=== PATIENT | male | born 1965 | race Caucasian/White ===

== ENCOUNTER 2019-10-11 20:22 | Observation (INO) | payer BC ==
[2019-10-11] MEDS ORDERED: Catapres 0.1 MG PO ONE (20:39)
[2019-10-11] MEDS ORDERED: Sodium Chloride 0.9% 1000 ML 1,000 ML IV SCH (20:45)
[2019-10-11] MEDS ORDERED: Hydromorphone 1 mg/ml Ampule IV ONE (20:55)
[2019-10-11] MEDS ORDERED: Catapres 0.1 MG ONE (20:55)
[2019-10-11] MEDS ORDERED: NORVASC 5 MG PO ONE (20:55)
[2019-10-11 20:56] LABS: Absolute Neutrophil Ct (ANC) 3.78 (1.4-6.9); BASOPHIL % 1.2 % (0.0-0.4); Basophil (Absolute #) 0.08 (0-0.4); Eosinophil (Absolute #) 0.19 (0-0.5); Hematocrit 46.8 % (42-50); Hemoglobin 16.6 gm/dl (12.5-18.0); Lymphocyte (Absolute #) 1.73 (1.0-4.6); Lymphocytes % 26.9 % (24.0-44.0); Mean Cell Volume 89.7 fl (78-100); Mean Corpuscular Hemoglobin 31.8 pg (26-32); Mean Corpuscular Hgb Concent. 35.5 g/dl (32-36); Mean Platelet Volume 10.4 fl (7.5-11.0); Monocyte (Absolute #) 0.64 (0.0-1.3); Neutrophil % 58.9 % (36.0-66.0); Platelet Count 300 K/mm3 (150-450); Red Blood Count 5.22 M/mm3 (4.1-5.6); Red Cell Distribution Width 13.4 % (11.5-14.0); White Blood Count 6.4 K/mm3 (4.0-10.5)
[2019-10-11] MEDS ORDERED: NORVASC 5 MG ONE (21:00)
[2019-10-11] MEDS ORDERED: Hydromorphone 1 mg/ml Ampule ONE (21:00)
[2019-10-11 21:07] LABS: INR 1.04 (0.8-3.0); PROTIME 11.8 SECONDS (8.83-12.87)
[2019-10-11 21:10] LABS: PTT 45.6 SECONDS (24.1-36.1)
[2019-10-11 21:12] LABS: ALBUMIN 4.5 g/dL (3.5-5.0); ALKALINE PHOSPHATASE 65 U/L (38-126); AMYLASE 64 U/L (30-110); ANION GAP 12.1 MEQ/L (5-15); BLOOD UREA NITROGEN 16 mg/dL (9-20); CHLORIDE 106 mmol/L (98-107); Carbon Dioxide 22 mmol/L (22-30); Creatinine 1 0.91 mg/dL (0.66-1.25); EST GLOMERULAR FILTRATION RATE > 60.0 ML/MIN; Glucose 125 mg/dL (74-106); LIPASE 87 U/L (23-300); Potassium 4.4 mmol/L (3.5-5.1); SGOT/AST 30 U/L (17-59); SGPT/ALT 25 U/L (0-50); SODIUM 136 mmol/L (137-145); Total Protein 7.9 g/dL (6.3-8.2)
[2019-10-11 21:30] LABS: Appearance CLEAR (CLEAR); Bilirubin NEGATIVE (NEGATIVE); Blood NEGATIVE Ery/ul (0-5); Glucose NEGATIVE (NEGATIVE); Ketones NEGATIVE (NEGATIVE); Leukocyte Esterase NEGATIVE (NEGATIVE); Mucus SLIGHT /HPF (NEGATIVE); Nitrite NEGATIVE (NEGATIVE); Protein,Urine Dip NEGATIVE (Negative); Specific Gravity 1.015 (1.005-1.025); Urobilinogen NEGATIVE mg/dL (0-1)
[2019-10-11 21:34] LABS: Bacteria NONE SEEN /HPF (NEGATIVE)
[2019-10-11] MEDS ORDERED: LOPRESSOR 5 MG/5 ML INJECTION IV ONE ×2 (21:42→21:45)
[2019-10-11] MEDS ORDERED: Zofran 4 MG/2 ML VIAL IV ONE (21:43)
[2019-10-11] MEDS ORDERED: Zofran 4 MG/2 ML VIAL ONE (21:45)
--- NOTE | 2019-10-11 22:22 | ERPHSYRPT ---
- History of Present Illness Time Seen by Provider: 10/11/19 20:40 Source: patient Exam Limitations: no limitations Patient Subjective Stated Complaint: pt states he had stopped taking his bp medicine and has been having headaches at home and chest pressure today. Triage Nursing Assessment: pt alert and oriented, answers questions approp. pt ambulatory with steady gait noted. respirations nonlabored with lungs cta. skin warm an dry. heart rate 80 on monitor, sinus rhythm. Physician History: Is a 54-year-old male who has been off of all blood pressure medicines for some months. He presents with a complaint of a severe headache and his blood pressure being elevated. He does not recall the medicines that have been used to try to control his blood pressure in the past. However he says that what ever has been tried has left him with unacceptable side effects in the past. He has had difficulties for several months but developed chest pressure today which brought him to the ER. He also complains of severe global headache Timing/Duration: today Activities at Onset: none Quality: fullness, pressure Location: substernal Chest Pain Radiation: no radiation Severity of Pain-Max: moderate Severity of Pain-Current: moderate Modifying Factors: Improves With: nothing Nitro Today/Relief: no nitro taken today Aspirin Treatment Today: no aspirin today Associated Symptoms: nausea, diaphoresis, chest pain Prior Chest Pain/Cardiac Workup: no prior chest pain Allergies/Adverse Reactions: No Known Drug Allergies Allergy (Verified 10/11/19 20:47) Home Medications: No Reportable Medications [No Reported Medications] 10/11/19 [History] Hx Tetanus, Diphtheria Vaccination/Date Given: Yes Hx Influenza Vaccination/Date Given: No Hx Pneumococcal Vaccination/Date Given: No Immunizations Up to Date: Yes Travel Risk - International Travel Have you traveled outside of the country in past 3 weeks: No - Coronavirus Screening Are you exhibiting any of the following symptoms?: No Close contact with a COVID-19 positive Pt in past 14-21 Days: No - Review of Systems Constitutional: No Fever, No Chills Eyes: No Symptoms Ears, Nose, & Throat: No Symptoms Respiratory: No Cough, No Dyspnea Cardiac: Chest Pain, No Edema, No Syncope Abdominal/Gastrointestinal: No Abdominal Pain, No Nausea, No Vomiting, No Diarrhea Genitourinary Symptoms: No Dysuria Musculoskeletal: No Back Pain, No Neck Pain Skin: No Rash Neurological: No Dizziness, No Focal Weakness, No Sensory Changes Psychological: No Symptoms Endocrine: No Symptoms All Other Systems: Reviewed and Negative - Past Medical History Pertinent Past Medical History: Yes Cardiac History: Hypertension - Past Surgical History Past Surgical History: Yes Gastrointestinal: Appendectomy Other Surgical History: back surgery 1999 - Social History Smoking Status: Light tobacco smoker Exposure to second hand smoke: No Drug Use: none Patient Lives Alone: No - Nursing Vital Signs Nursing Vital Signs: Initial Vital Signs Temperature 98.5 F 10/11/19 20:29 Pulse Rate 85 10/11/19 20:29 Respiratory Rate 16 10/11/19 20:29 Blood Pressure 206/112 10/11/19 20:29 O2 Sat by Pulse Oximetry 98 10/11/19 20:29 Pain Scale Pain Intensity 6 - Physical Exam General Appearance: no apparent distress, alert Eye Exam: PERRL/EOMI, eyes nml inspection Ears, Nose, Throat Exam: normal ENT inspection, moist mucous membranes Neck Exam: normal inspection, non-tender, supple Respiratory Exam: normal breath sounds, lungs clear, No respiratory distress Cardiovascular Exam: regular rate/rhythm, normal heart sounds, No edema Gastrointestinal/Abdomen Exam: soft, No tenderness, No mass Back Exam: normal inspection, No CVA tenderness, No vertebral tenderness Extremity Exam: normal inspection, normal range of motion Neurologic Exam: alert, oriented x 3, cooperative, normal mood/affect, nml cerebellar function, sensation nml, No motor deficits Skin Exam: normal color, warm, dry Lymphatic Exam: No adenopathy SpO2 Interpretation: normal SpO2: 97 O2 Delivery: Room Air - Course Nursing assessment & vital signs reviewed: Yes EKG Interpreted by Me: RATE (87), Sinus Rhythm, NORMAL AXIS, NORMAL INTERVALS, NORMAL QRS, Non-specific ST Changes, Other (Old inferior CO) - Radiology Exams Chest X-ray Interpretation: Interpreted by me (Widened mediastinum) - CT Exams Chest CT Interpretation: Tele-radiologist Report (CT scan of the chest with contrast shows no pulmonary emboli no thoracic aortic aneurysm or dissection and old granulomatous disease) Ordered Tests: Active Orders 24 hr Category Date Time Status EKG-ER Only STAT Care 10/11/19 20:39 Active IV Insertion STAT Care 10/11/19 20:39 Active CHEST 1 VIEW (PORTABLE) Stat Exams 10/11/19 20:40 Taken CHEST WITH CONTRAST [CT] Stat Exams 10/11/19 22:53 Taken HEAD WITHOUT CONTRAST [CT] Stat Exams 10/11/19 20:56 Taken AMYLASE Stat Lab 10/11/19 20:50 Completed CBC W DIFF Stat Lab 10/11/19 20:50 Completed CMP Stat Lab 10/11/19 20:50 Completed LIPASE Stat Lab 10/11/19 20:50 Completed Lactic Acid Stat Lab 10/11/19 21:05 Completed PROTIME WITH INR Stat Lab 10/11/19 20:50 Completed PTT Stat Lab 10/11/19 20:50 Completed TROPONIN Q3H Lab 10/11/19 20:50 Completed TROPONIN Q3H Lab 10/11/19 23:45 Completed TROPONIN Q3H Lab 10/12/19 00:10 Received TROPONIN Q3H Lab 10/12/19 05:45 Ordered TROPONIN Q3H Lab 10/12/19 08:45 Ordered Medication Summary Generic Name Dose Route Start Last Admin Trade Name Freq PRN Reason Stop Dose Admin Sodium Chloride 1,000 mls @ 50 mls/hr 10/11/19 20:45 10/11/19 21:02 Sodium Chloride 0.9% 1000 Ml IV 11/10/19 20:44 50 mls/hr .Q20H SARA Administration Discontinued Medications Generic Name Dose Route Start Last Admin Trade Name Freq PRN Reason Stop Dose Admin Amlodipine Besylate 10 mg 10/11/19 20:55 10/11/19 21:02 Norvasc 5 Mg PO 10/11/19 20:56 10 mg STAT ONE Administration Amlodipine Besylate Confirm 10/11/19 21:00 Norvasc 5 Mg Administered 10/11/19 21:01 Dose 10 mg .ROUTE .STK-MED ONE Clonidine 0.1 mg 10/11/19 20:39 10/11/19 21:02 Catapres 0.1 Mg PO 10/11/19 20:40 0.1 mg STAT ONE Administration Clonidine Confirm 10/11/19 20:55 Catapres 0.1 Mg Administered 10/11/19 20:56 Dose 0.1 mg .ROUTE .STK-MED ONE Hydromorphone HCl 1 mg 10/11/19 20:55 10/11/19 21:03 Hydromorphone 1 Mg/Ml Ampule IV 10/11/19 20:56 1 mg STAT ONE Administration Hydromorphone HCl Confirm 10/11/19 21:00 Hydromorphone 1 Mg/Ml Ampule Administered 10/11/19 21:01 Dose 1 mg .ROUTE .STK-MED ONE Metoprolol Tartrate 5 mg 10/11/19 21:42 10/11/19 21:49 Lopressor 5 Mg/5 Ml Injection IV 10/11/19 21:43 5 mg STAT ONE Administration Metoprolol Tartrate Confirm 10/11/19 21:45 Lopressor 5 Mg/5 Ml Injection Administered 10/11/19 21:46 Dose 5 mg IV .STK-MED ONE Ondansetron HCl 4 mg 10/11/19 21:43 10/11/19 21:48 Zofran 4 Mg/2 Ml Vial IV 10/11/19 21:44 4 mg STAT ONE Administration Ondansetron HCl Confirm 10/11/19 21:45 Zofran 4 Mg/2 Ml Vial Administered 10/11/19 21:46 Dose 4 mg .ROUTE .STK-MED ONE Lab/Rad Data: Laboratory Result Diagrams 10/11/19 20:50 10/11/19 20:50 Laboratory Results 10/12/19 10/11/19 10/11/19 Range/Units 00:10 Unknown 23:50 WBC (4.0-10.5) K/mm3 RBC (4.1-5.6) M/mm3 Hgb (12.5-18.0) gm/dl Hct (42-50) % MCV (78-100) fl MCH (26-32) pg MCHC (32-36) g/dl RDW (11.5-14.0) % Plt Count (150-450) K/mm3 MPV (7.5-11.0) fl Gran % (36.0-66.0) % Eos # (Auto) (0-0.5) Absolute Lymphs (auto) (1.0-4.6) Absolute Monos (auto) (0.0-1.3) Lymphocytes % (24.0-44.0) % Monocytes % (0.0-12.0) % Eosinophils % (0.00-5.0) % Basophils % (0.0-0.4) % Absolute Granulocytes (1.4-6.9) Basophils # (0-0.4) PT (8.83-12.87) SECONDS INR (0.8-3.0) APTT (24.1-36.1) SECONDS Sodium (137-145) mmol/L Potassium (3.5-5.1) mmol/L Chloride (98-107) mmol/L Carbon Dioxide (22-30) mmol/L Anion Gap (5-15) MEQ/L BUN (9-20) mg/dL Creatinine (0.66-1.25) mg/dL Estimated GFR ML/MIN Glucose (74-106) mg/dL Lactic Acid (0.4-2.0) Calcium (8.4-10.2) mg/dL Total Bilirubin (0.2-1.3) mg/dL AST (17-59) U/L ALT (0-50) U/L Alkaline Phosphatase (38-126) U/L Troponin I < 0.012 (0.000-0.034) ng/mL Serum Total Protein (6.3-8.2) g/dL Albumin (3.5-5.0) g/dL Amylase (30-110) U/L Lipase (23-300) U/L Urine Color YELLOW (YELLOW) Urine Appearance CLEAR (CLEAR) Urine pH 7.0 (5-6) Ur Specific [place] 1.015 (1.005-1.025) Urine Protein NEGATIVE (Negative) Urine Ketones NEGATIVE (NEGATIVE) Urine Blood NEGATIVE (0-5) Quentin/ul Urine Nitrite NEGATIVE (NEGATIVE) Urine Bilirubin NEGATIVE (NEGATIVE) Urine Urobilinogen NEGATIVE (0-1) mg/dL Ur Leukocyte Esterase NEGATIVE (NEGATIVE) Urine WBC (Auto) NONE (0-5) /HPF Urine RBC (Auto) NONE (0-2) /HPF U Epithel Cells (Auto) NONE (FEW) /HPF Urine Bacteria (Auto) NONE SEEN (NEGATIVE) /HPF Urine Mucus (Auto) SLIGHT (NEGATIVE) /HPF Urine Culture Reflexed NO (NO) Urine Glucose NEGATIVE (NEGATIVE) mg/dL SARS-CoV-2 (PCR) NEGATIVE (NEGATIVE) 10/11/19 10/11/19 10/11/19 Range/Units 21:05 20:50 20:50 WBC (4.0-10.5) K/mm3 RBC (4.1-5.6) M/mm3 Hgb (12.5-18.0) gm/dl Hct (42-50) % MCV (78-100) fl MCH (26-32) pg MCHC (32-36) g/dl RDW (11.5-14.0) % Plt Count (150-450) K/mm3 MPV (7.5-11.0) fl Gran % (36.0-66.0) % Eos # (Auto) (0-0.5) Absolute Lymphs (auto) (1.0-4.6) Absolute Monos (auto) (0.0-1.3) Lymphocytes % (24.0-44.0) % Monocytes % (0.0-12.0) % Eosinophils % (0.00-5.0) % Basophils % (0.0-0.4) % Absolute Granulocytes (1.4-6.9) Basophils # (0-0.4) PT 11.8 (8.83-12.87) SECONDS INR 1.04 (0.8-3.0) APTT 45.6 H (24.1-36.1) SECONDS Sodium (137-145) mmol/L Potassium (3.5-5.1) mmol/L Chloride (98-107) mmol/L Carbon Dioxide (22-30) mmol/L Anion Gap (5-15) MEQ/L BUN (9-20) mg/dL Creatinine (0.66-1.25) mg/dL Estimated GFR ML/MIN Glucose (74-106) mg/dL Lactic Acid 1.4 (0.4-2.0) Calcium (8.4-10.2) mg/dL Total Bilirubin (0.2-1.3) mg/dL AST (17-59) U/L ALT (0-50) U/L Alkaline Phosphatase (38-126) U/L Troponin I < 0.012 (0.000-0.034) ng/mL Serum Total Protein (6.3-8.2) g/dL Albumin (3.5-5.0) g/dL Amylase (30-110) U/L Lipase (23-300) U/L Urine Color (YELLOW) Urine Appearance (CLEAR) Urine pH (5-6) Ur Specific [place] (1.005-1.025) Urine Protein (Negative) Urine Ketones (NEGATIVE) Urine Blood (0-5) Quentin/ul Urine Nitrite (NEGATIVE) Urine Bilirubin (NEGATIVE) Urine Urobilinogen (0-1) mg/dL Ur Leukocyte Esterase (NEGATIVE) Urine WBC (Auto) (0-5) /HPF Urine RBC (Auto) (0-2) /HPF U Epithel Cells (Auto) (FEW) /HPF Urine Bacteria (Auto) (NEGATIVE) /HPF Urine Mucus (Auto) (NEGATIVE) /HPF Urine Culture Reflexed (NO) Urine Glucose (NEGATIVE) mg/dL SARS-CoV-2 (PCR) (NEGATIVE) 10/11/19 10/11/19 Range/Units 20:50 20:50 WBC 6.4 (4.0-10.5) K/mm3 RBC 5.22 (4.1-5.6) M/mm3 Hgb 16.6 (12.5-18.0) gm/dl Hct 46.8 (42-50) % MCV 89.7 (78-100) fl MCH 31.8 (26-32) pg MCHC 35.5 (32-36) g/dl RDW 13.4 (11.5-14.0) % Plt Count 300 (150-450) K/mm3 MPV 10.4 (7.5-11.0) fl Gran % 58.9 (36.0-66.0) % Eos # (Auto) 0.19 (0-0.5) Absolute Lymphs (auto) 1.73 (1.0-4.6) Absolute Monos (auto) 0.64 (0.0-1.3) Lymphocytes % 26.9 (24.0-44.0) % Monocytes % 10.0 (0.0-12.0) % Eosinophils % 3.0 (0.00-5.0) % Basophils % 1.2 (0.0-0.4) % Absolute Granulocytes 3.78 (1.4-6.9) Basophils # 0.08 (0-0.4) PT (8.83-12.87) SECONDS INR (0.8-3.0) APTT (24.1-36.1) SECONDS Sodium 136 L (137-145) mmol/L Potassium 4.4 (3.5-5.1) mmol/L Chloride 106 (98-107) mmol/L Carbon Dioxide 22 (22-30) mmol/L Anion Gap 12.1 (5-15) MEQ/L BUN 16 (9-20) mg/dL Creatinine 0.91 (0.66-1.25) mg/dL Estimated GFR > 60.0 ML/MIN Glucose 125 H (74-106) mg/dL Lactic Acid (0.4-2.0) Calcium 9.0 (8.4-10.2) mg/dL Total Bilirubin 0.80 (0.2-1.3) mg/dL AST 30 (17-59) U/L ALT 25 (0-50) U/L Alkaline Phosphatase 65 (38-126) U/L Troponin I (0.000-0.034) ng/mL Serum Total Protein 7.9 (6.3-8.2) g/dL Albumin 4.5 (3.5-5.0) g/dL Amylase 64 (30-110) U/L Lipase 87 (23-300) U/L Urine Color (YELLOW) Urine Appearance (CLEAR) Urine pH (5-6) Ur Specific [place] (1.005-1.025) Urine Protein (Negative) Urine Ketones (NEGATIVE) Urine Blood (0-5) Quentin/ul Urine Nitrite (NEGATIVE) Urine Bilirubin (NEGATIVE) Urine Urobilinogen (0-1) mg/dL Ur Leukocyte Esterase (NEGATIVE) Urine WBC (Auto) (0-5) /HPF Urine RBC (Auto) (0-2) /HPF U Epithel Cells (Auto) (FEW) /HPF Urine Bacteria (Auto) (NEGATIVE) /HPF Urine Mucus (Auto) (NEGATIVE) /HPF Urine Culture Reflexed (NO) Urine Glucose (NEGATIVE) mg/dL SARS-CoV-2 (PCR) (NEGATIVE) - Progress Progress: improved Air Movement: good Progress Note: 10/12/19 01:15 Did discuss the case with Dr. Glenn miller and felt that an observation admission was warranted by his continued chest pain and troponin series. We will also watch and monitor his blood pressure. And treat as necessary Blood Culture(s) Obtained: No Antibiotics given: No Discussed with : Judd Will see patient in: hospital (observation) - Departure Departure Disposition: Observation Clinical Impression: Hypertensive emergency without congestive heart failure, Chest pain Condition: Fair Critical Care Time: Yes Critical Care Time(excluding separately billable procedures): Critical 30-74 mins Referrals: BRANDO RUSHING, GROUP ROOMS COORDINATOR [Primary Care Provider] -
[2019-10-12] MEDS ORDERED: TYLENOL 325 MG PO PRN (01:18)
[2019-10-12] MEDS ORDERED: MORPHINE SULFATE 2 MG INJ IV PRN (01:18)
[2019-10-12] MEDS ORDERED: Zofran 4 MG/2 ML VIAL IV PRN (01:18)
[2019-10-12 03:33] LABS: Absolute Neutrophil Ct (ANC) 3.24 (1.4-6.9); BASOPHIL % 0.6 % (0.0-0.4); Basophil (Absolute #) 0.04 (0-0.4); Eosinophil (Absolute #) 0.25 (0-0.5); Hematocrit 42.9 % (42-50); Hemoglobin 14.9 gm/dl (12.5-18.0); Lymphocyte (Absolute #) 2.21 (1.0-4.6); Mean Cell Volume 90.1 fl (78-100); Mean Corpuscular Hemoglobin 31.3 pg (26-32); Mean Corpuscular Hgb Concent. 34.7 g/dl (32-36); Mean Platelet Volume 10.2 fl (7.5-11.0); Monocyte (Absolute #) 0.57 (0.0-1.3); Neutrophil % 51.4 % (36.0-66.0); Platelet Count 259 K/mm3 (150-450); Red Blood Count 4.76 M/mm3 (4.1-5.6); Red Cell Distribution Width 13.4 % (11.5-14.0); White Blood Count 6.3 K/mm3 (4.0-10.5)
[2019-10-12 03:45] LABS: ANION GAP 8.8 MEQ/L (5-15); BLOOD UREA NITROGEN 13 mg/dL (9-20); CHLORIDE 104 mmol/L (98-107); Calcium 8.5 mg/dL (8.4-10.2); Carbon Dioxide 26 mmol/L (22-30); EST GLOMERULAR FILTRATION RATE > 60.0 ML/MIN; Glucose 119 mg/dL (74-106); SODIUM 135 mmol/L (137-145)
--- NOTE | 2019-10-12 08:38 | XRAY ---
Indication: Hypertension, severe headache, and chest pressure. Multiple contiguous axial images obtained through the head without contrast. Comparison: None Right cerebellum demonstrates small focus old infarct. Posterior left basal ganglia demonstrates small lacunar infarct. No acute intracranial hemorrhage, abnormal extra-axial fluid collection, or mass effect. Fourth ventricle is midline without hydrocephalus. [place]k-white matter differentiation preserved. Bony calvarium intact. Moderate mucosal thickening of both ethmoid and lesser degree both maxillary/frontal sinuses. Mastoid air cells are clear. Impression: 1. 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 2. No acute intracranial abnormalities. 3. Incidental pansinusitis. Comment: Preliminary interpretation was made by [facility]. No critical discrepancy.
--- NOTE | 2019-10-12 08:44 | XRAY ---
Indication: Chest pressure. Hypertension. Comparison: None Portable chest clear. Heart and mediastinal structures within normal limits. Bony thorax intact with minimal degenerative changes. Impression: Nonacute chest.
--- NOTE | 2019-10-12 08:44 | XRAY ---
Indication: Hypertension, severe headache, and chest pressure/substernal chest pain. Multiple contiguous axial images obtained through the chest using 80 cc Isovue 370 contrast and PE protocol. Comparison: None There is good opacification of the pulmonary arteries to include the lobar and segmental branches. No pulmonary embolus. Heart is not enlarged. Aorta is normal in course and caliber. A few small mediastinal lymph nodes. No pathologic mediastinal/hilar lymphadenopathy. Small hiatal hernia. Lungs demonstrates mild pulmonary emphysema, scattered fibrosis/scarring, and mild bilateral dependent atelectasis. No suspicious pulmonary mass, infiltrate, consolidation, or effusion. Bony thorax intact with mild degenerative changes throughout the spine. Limited upper abdomen demonstrates mild fatty liver and 2 left renal cysts, largest 4.2 cm. Impression: 1. Negative pulmonary embolus. No acute cardiopulmonary abnormalities. 2. Incidental pulmonary emphysema, fatty liver, and left renal cysts. Comment: Preliminary interpretation was made by [facility]. No critical discrepancy.
[2019-10-12] MEDS ORDERED: Toprol Xl 50 MG PO SCH (10:00)
[2019-10-12] MEDS ORDERED: NORVASC 5 MG PO SCH (10:00)
--- NOTE | 2019-10-12 11:35 | PCM.SSS ---
History of Present Illness - Chief Complaint Chief Complaint: chest pain and high blood pressure for a day History of Present Illness: is a 54 year old male. who has been off of all blood pressure medicines for some months. He presents with a complaint of a severe headache and his blood pressure being elevated. He does not recall the medicines that have been used to try to control his blood pressure in the past. However he says that what ever has been tried has left him with unacceptable side effects in the past. He has had difficulties for several months but developed chest pressure today which brought him to the ER. He also complains of severe global headache - Review of Systems Constitutional: No Fever, No Chills Eyes: No Symptoms Ears, Nose, & Throat: No Symptoms Respiratory: No Cough, No Short Of Breath Cardiac: No Chest Pain, No Edema, No Syncope Abdominal/Gastrointestinal: No Abdominal Pain, No Nausea, No Vomiting, No Diarrhea Genitourinary Symptoms: No Dysuria Musculoskeletal: No Back Pain, No Neck Pain Skin: No Rash Neurological: No Dizziness, No Focal Weakness, No Sensory Changes Psychological: No Symptoms Endocrine: No Symptoms Hematologic/Lymphatic: No Symptoms Immunological/Allergic: No Symptoms Medications & Allergies Home Medications: Home Medication List Amlodipine Besylate 5 mg [Norvasc 5 mg] 10 mg PO QAM 30 Days #30 tablet 10/12/19 [Rx] Metoprolol Succinate 50 mg [Toprol Xl 50 MG] 50 mg PO DAILY #30 tablet.sa 10/12/19 [Rx] Allergies/Adverse Reactions: Allergies Allergy/AdvReac Type Severity Reaction Status Date / Time No Known Drug Allergies Allergy Verified 10/11/19 20:47 - Past Medical History Past Medical History: Yes Cardiac History: Hypertension - Past Surgical History Past Surgical History: Yes GI Surgical History: Appendectomy Other Surgical History: back surgery 1999 - Social History Smoking Status: Current some day smoker Exposure to second hand smoke: No Alcohol: None Drug Use: none - Physical Exam Vital Signs: Vital Signs - 24 hr Temp Pulse Resp BP Pulse Ox 10/12/19 07:31 97.7 F 51 L 17 134/69 95 10/12/19 04:00 50 L 18 124/66 98 10/12/19 02:45 142/87 10/12/19 02:07 97.6 F 56 L 18 170/87 97 10/12/19 01:18 97 10/12/19 01:00 64 18 121/88 100 10/12/19 00:09 55 L 16 160/95 99 10/11/19 23:11 60 16 167/98 97 10/11/19 22:34 66 16 198/112 98 10/11/19 21:45 84 16 205/115 97 10/11/19 20:29 98.5 F 85 16 206/112 98 General Appearance: no apparent distress, alert Neurologic Exam: alert, oriented x 3, cooperative, normal mood/affect, nml cerebellar function, nml station & gait, sensation nml, No motor deficits Eye Exam: PERRL/EOMI, eyes nml inspection Ears, Nose, Throat Exam: normal ENT inspection, TMs normal, pharynx normal, moist mucous membranes Neck Exam: normal inspection, non-tender, supple, full range of motion Respiratory Exam: normal breath sounds, lungs clear, No respiratory distress Cardiovascular Exam: regular rate/rhythm, normal heart sounds, normal peripheral pulses Gastrointestinal/Abdomen Exam: soft, normal bowel sounds, No tenderness, No mass Back Exam: normal inspection, normal range of motion, No CVA tenderness, No vertebral tenderness Extremity Exam: normal inspection, normal range of motion, pelvis stable Skin Exam: normal color, warm, dry, No rash Lymphatic Exam: No adenopathy Results - Labs Lab/Micro Results: Lab Results-Last 24 Hours 10/11/19 10/11/19 10/11/19 Range/Units 20:50 20:50 20:50 WBC 6.4 (4.0-10.5) K/mm3 RBC 5.22 (4.1-5.6) M/mm3 Hgb 16.6 (12.5-18.0) gm/dl Hct 46.8 (42-50) % MCV 89.7 (78-100) fl MCH 31.8 (26-32) pg MCHC 35.5 (32-36) g/dl RDW 13.4 (11.5-14.0) % Plt Count 300 (150-450) K/mm3 MPV 10.4 (7.5-11.0) fl Gran % 58.9 (36.0-66.0) % Eos # (Auto) 0.19 (0-0.5) Absolute Lymphs (auto) 1.73 (1.0-4.6) Absolute Monos (auto) 0.64 (0.0-1.3) Lymphocytes % 26.9 (24.0-44.0) % Monocytes % 10.0 (0.0-12.0) % Eosinophils % 3.0 (0.00-5.0) % Basophils % 1.2 (0.0-0.4) % Absolute Granulocytes 3.78 (1.4-6.9) Basophils # 0.08 (0-0.4) PT 11.8 (8.83-12.87) SECONDS INR 1.04 (0.8-3.0) APTT 45.6 H (24.1-36.1) SECONDS Sodium 136 L (137-145) mmol/L Potassium 4.4 (3.5-5.1) mmol/L Chloride 106 (98-107) mmol/L Carbon Dioxide 22 (22-30) mmol/L Anion Gap 12.1 (5-15) MEQ/L BUN 16 (9-20) mg/dL Creatinine 0.91 (0.66-1.25) mg/dL Estimated GFR > 60.0 ML/MIN Glucose 125 H (74-106) mg/dL Lactic Acid (0.4-2.0) Calcium 9.0 (8.4-10.2) mg/dL Total Bilirubin 0.80 (0.2-1.3) mg/dL AST 30 (17-59) U/L ALT 25 (0-50) U/L Alkaline Phosphatase 65 (38-126) U/L Troponin I (0.000-0.034) ng/mL Serum Total Protein 7.9 (6.3-8.2) g/dL Albumin 4.5 (3.5-5.0) g/dL Amylase 64 (30-110) U/L Lipase 87 (23-300) U/L Urine Color (YELLOW) Urine Appearance (CLEAR) Urine pH (5-6) Ur Specific Hailey (1.005-1.025) Urine Protein (Negative) Urine Ketones (NEGATIVE) Urine Blood (0-5) Quentin/ul Urine Nitrite (NEGATIVE) Urine Bilirubin (NEGATIVE) Urine Urobilinogen (0-1) mg/dL Ur Leukocyte Esterase (NEGATIVE) Urine WBC (Auto) (0-5) /HPF Urine RBC (Auto) (0-2) /HPF U Epithel Cells (Auto) (FEW) /HPF Urine Bacteria (Auto) (NEGATIVE) /HPF Urine Mucus (Auto) (NEGATIVE) /HPF Urine Culture Reflexed (NO) Urine Glucose (NEGATIVE) mg/dL SARS-CoV-2 (PCR) (NEGATIVE) 10/11/19 10/11/19 10/11/19 Range/Units 20:50 21:05 23:50 WBC (4.0-10.5) K/mm3 RBC (4.1-5.6) M/mm3 Hgb (12.5-18.0) gm/dl Hct (42-50) % MCV (78-100) fl MCH (26-32) pg MCHC (32-36) g/dl RDW (11.5-14.0) % Plt Count (150-450) K/mm3 MPV (7.5-11.0) fl Gran % (36.0-66.0) % Eos # (Auto) (0-0.5) Absolute Lymphs (auto) (1.0-4.6) Absolute Monos (auto) (0.0-1.3) Lymphocytes % (24.0-44.0) % Monocytes % (0.0-12.0) % Eosinophils % (0.00-5.0) % Basophils % (0.0-0.4) % Absolute Granulocytes (1.4-6.9) Basophils # (0-0.4) PT (8.83-12.87) SECONDS INR (0.8-3.0) APTT (24.1-36.1) SECONDS Sodium (137-145) mmol/L Potassium (3.5-5.1) mmol/L Chloride (98-107) mmol/L Carbon Dioxide (22-30) mmol/L Anion Gap (5-15) MEQ/L BUN (9-20) mg/dL Creatinine (0.66-1.25) mg/dL Estimated GFR ML/MIN Glucose (74-106) mg/dL Lactic Acid 1.4 (0.4-2.0) Calcium (8.4-10.2) mg/dL Total Bilirubin (0.2-1.3) mg/dL AST (17-59) U/L ALT (0-50) U/L Alkaline Phosphatase (38-126) U/L Troponin I < 0.012 (0.000-0.034) ng/mL Serum Total Protein (6.3-8.2) g/dL Albumin (3.5-5.0) g/dL Amylase (30-110) U/L Lipase (23-300) U/L Urine Color (YELLOW) Urine Appearance (CLEAR) Urine pH (5-6) Ur Specific Hailey (1.005-1.025) Urine Protein (Negative) Urine Ketones (NEGATIVE) Urine Blood (0-5) Quentin/ul Urine Nitrite (NEGATIVE) Urine Bilirubin (NEGATIVE) Urine Urobilinogen (0-1) mg/dL Ur Leukocyte Esterase (NEGATIVE) Urine WBC (Auto) (0-5) /HPF Urine RBC (Auto) (0-2) /HPF U Epithel Cells (Auto) (FEW) /HPF Urine Bacteria (Auto) (NEGATIVE) /HPF Urine Mucus (Auto) (NEGATIVE) /HPF Urine Culture Reflexed (NO) Urine Glucose (NEGATIVE) mg/dL SARS-CoV-2 (PCR) NEGATIVE (NEGATIVE) 10/11/19 10/12/19 10/12/19 Range/Units Unknown 00:10 00:10 WBC (4.0-10.5) K/mm3 RBC (4.1-5.6) M/mm3 Hgb (12.5-18.0) gm/dl Hct (42-50) % MCV (78-100) fl MCH (26-32) pg MCHC (32-36) g/dl RDW (11.5-14.0) % Plt Count (150-450) K/mm3 MPV (7.5-11.0) fl Gran % (36.0-66.0) % Eos # (Auto) (0-0.5) Absolute Lymphs (auto) (1.0-4.6) Absolute Monos (auto) (0.0-1.3) Lymphocytes % (24.0-44.0) % Monocytes % (0.0-12.0) % Eosinophils % (0.00-5.0) % Basophils % (0.0-0.4) % Absolute Granulocytes (1.4-6.9) Basophils # (0-0.4) PT (8.83-12.87) SECONDS INR (0.8-3.0) APTT (24.1-36.1) SECONDS Sodium (137-145) mmol/L Potassium (3.5-5.1) mmol/L Chloride (98-107) mmol/L Carbon Dioxide (22-30) mmol/L Anion Gap (5-15) MEQ/L BUN (9-20) mg/dL Creatinine (0.66-1.25) mg/dL Estimated GFR ML/MIN Glucose (74-106) mg/dL Lactic Acid (0.4-2.0) Calcium (8.4-10.2) mg/dL Total Bilirubin (0.2-1.3) mg/dL AST (17-59) U/L ALT (0-50) U/L Alkaline Phosphatase (38-126) U/L Troponin I < 0.012 < 0.012 (0.000-0.034) ng/mL Serum Total Protein (6.3-8.2) g/dL Albumin (3.5-5.0) g/dL Amylase (30-110) U/L Lipase (23-300) U/L Urine Color YELLOW (YELLOW) Urine Appearance CLEAR (CLEAR) Urine pH 7.0 (5-6) Ur Specific Hailey 1.015 (1.005-1.025) Urine Protein NEGATIVE (Negative) Urine Ketones NEGATIVE (NEGATIVE) Urine Blood NEGATIVE (0-5) Quentin/ul Urine Nitrite NEGATIVE (NEGATIVE) Urine Bilirubin NEGATIVE (NEGATIVE) Urine Urobilinogen NEGATIVE (0-1) mg/dL Ur Leukocyte Esterase NEGATIVE (NEGATIVE) Urine WBC (Auto) NONE (0-5) /HPF Urine RBC (Auto) NONE (0-2) /HPF U Epithel Cells (Auto) NONE (FEW) /HPF Urine Bacteria (Auto) NONE SEEN (NEGATIVE) /HPF Urine Mucus (Auto) SLIGHT (NEGATIVE) /HPF Urine Culture Reflexed NO (NO) Urine Glucose NEGATIVE (NEGATIVE) mg/dL SARS-CoV-2 (PCR) (NEGATIVE) 10/12/19 10/12/19 10/12/19 Range/Units 03:25 03:25 05:47 WBC 6.3 (4.0-10.5) K/mm3 RBC 4.76 (4.1-5.6) M/mm3 Hgb 14.9 (12.5-18.0) gm/dl Hct 42.9 (42-50) % MCV 90.1 (78-100) fl MCH 31.3 (26-32) pg MCHC 34.7 (32-36) g/dl RDW 13.4 (11.5-14.0) % Plt Count 259 (150-450) K/mm3 MPV 10.2 (7.5-11.0) fl Gran % 51.4 (36.0-66.0) % Eos # (Auto) 0.25 (0-0.5) Absolute Lymphs (auto) 2.21 (1.0-4.6) Absolute Monos (auto) 0.57 (0.0-1.3) Lymphocytes % 35.0 (24.0-44.0) % Monocytes % 9.0 (0.0-12.0) % Eosinophils % 4.0 (0.00-5.0) % Basophils % 0.6 (0.0-0.4) % Absolute Granulocytes 3.24 (1.4-6.9) Basophils # 0.04 (0-0.4) PT (8.83-12.87) SECONDS INR (0.8-3.0) APTT (24.1-36.1) SECONDS Sodium 135 L (137-145) mmol/L Potassium 4.0 (3.5-5.1) mmol/L Chloride 104 (98-107) mmol/L Carbon Dioxide 26 (22-30) mmol/L Anion Gap 8.8 (5-15) MEQ/L BUN 13 (9-20) mg/dL Creatinine 0.90 (0.66-1.25) mg/dL Estimated GFR > 60.0 ML/MIN Glucose 119 H (74-106) mg/dL Lactic Acid (0.4-2.0) Calcium 8.5 (8.4-10.2) mg/dL Total Bilirubin (0.2-1.3) mg/dL AST (17-59) U/L ALT (0-50) U/L Alkaline Phosphatase (38-126) U/L Troponin I < 0.012 (0.000-0.034) ng/mL Serum Total Protein (6.3-8.2) g/dL Albumin (3.5-5.0) g/dL Amylase (30-110) U/L Lipase (23-300) U/L Urine Color (YELLOW) Urine Appearance (CLEAR) Urine pH (5-6) Ur Specific Hailey (1.005-1.025) Urine Protein (Negative) Urine Ketones (NEGATIVE) Urine Blood (0-5) Quentin/ul Urine Nitrite (NEGATIVE) Urine Bilirubin (NEGATIVE) Urine Urobilinogen (0-1) mg/dL Ur Leukocyte Esterase (NEGATIVE) Urine WBC (Auto) (0-5) /HPF Urine RBC (Auto) (0-2) /HPF U Epithel Cells (Auto) (FEW) /HPF Urine Bacteria (Auto) (NEGATIVE) /HPF Urine Mucus (Auto) (NEGATIVE) /HPF Urine Culture Reflexed (NO) Urine Glucose (NEGATIVE) mg/dL SARS-CoV-2 (PCR) (NEGATIVE) 10/12/19 Range/Units 08:45 WBC (4.0-10.5) K/mm3 RBC (4.1-5.6) M/mm3 Hgb (12.5-18.0) gm/dl Hct (42-50) % MCV (78-100) fl MCH (26-32) pg MCHC (32-36) g/dl RDW (11.5-14.0) % Plt Count (150-450) K/mm3 MPV (7.5-11.0) fl Gran % (36.0-66.0) % Eos # (Auto) (0-0.5) Absolute Lymphs (auto) (1.0-4.6) Absolute Monos (auto) (0.0-1.3) Lymphocytes % (24.0-44.0) % Monocytes % (0.0-12.0) % Eosinophils % (0.00-5.0) % Basophils % (0.0-0.4) % Absolute Granulocytes (1.4-6.9) Basophils # (0-0.4) PT (8.83-12.87) SECONDS INR (0.8-3.0) APTT (24.1-36.1) SECONDS Sodium (137-145) mmol/L Potassium (3.5-5.1) mmol/L Chloride (98-107) mmol/L Carbon Dioxide (22-30) mmol/L Anion Gap (5-15) MEQ/L BUN (9-20) mg/dL Creatinine (0.66-1.25) mg/dL Estimated GFR ML/MIN Glucose (74-106) mg/dL Lactic Acid (0.4-2.0) Calcium (8.4-10.2) mg/dL Total Bilirubin (0.2-1.3) mg/dL AST (17-59) U/L ALT (0-50) U/L Alkaline Phosphatase (38-126) U/L Troponin I < 0.012 (0.000-0.034) ng/mL Serum Total Protein (6.3-8.2) g/dL Albumin (3.5-5.0) g/dL Amylase (30-110) U/L Lipase (23-300) U/L Urine Color (YELLOW) Urine Appearance (CLEAR) Urine pH (5-6) Ur Specific Hailey (1.005-1.025) Urine Protein (Negative) Urine Ketones (NEGATIVE) Urine Blood (0-5) Quentin/ul Urine Nitrite (NEGATIVE) Urine Bilirubin (NEGATIVE) Urine Urobilinogen (0-1) mg/dL Ur Leukocyte Esterase (NEGATIVE) Urine WBC (Auto) (0-5) /HPF Urine RBC (Auto) (0-2) /HPF U Epithel Cells (Auto) (FEW) /HPF Urine Bacteria (Auto) (NEGATIVE) /HPF Urine Mucus (Auto) (NEGATIVE) /HPF Urine Culture Reflexed (NO) Urine Glucose (NEGATIVE) mg/dL SARS-CoV-2 (PCR) (NEGATIVE) - Radiology Impressions Radiology Exams & Impressions: Radiology Procedures Category Date Time Status CHEST 1 VIEW (PORTABLE) Stat Exams 10/11/19 20:40 Completed CHEST WITH CONTRAST [CT] Stat Exams 10/11/19 22:53 Completed HEAD WITHOUT CONTRAST [CT] Stat Exams 10/11/19 20:56 Completed Assessment/Plan (1) Chest pain Current Visit: Yes Status: Acute Qualifiers: Chest pain type: precordial pain Qualified Code(s): R07.2 - Precordial pain Code(s): R07.9 - CHEST PAIN, UNSPECIFIED (2) Hypertensive emergency without congestive heart failure Current Visit: Yes Status: Acute Code(s): I16.1 - HYPERTENSIVE EMERGENCY Hospital Summary - Hospital Course Hospital Course: Chief Complaint Diagnosis Hypertensive emergency Allergies Allergy/AdvReac Type Severity Reaction Status Date / Time No Known Drug Allergies Allergy Verified 10/11/19 20:47 Vital Signs (Last 24 hours) Temp Pulse Resp BP Pulse Ox 10/12/19 07:31 97.7 F 51 L 17 134/69 95 10/12/19 04:00 50 L 18 124/66 98 10/12/19 02:45 142/87 10/12/19 02:07 97.6 F 56 L 18 170/87 97 10/12/19 01:18 97 10/12/19 01:00 64 18 121/88 100 10/12/19 00:09 55 L 16 160/95 99 10/11/19 23:11 60 16 167/98 97 10/11/19 22:34 66 16 198/112 98 10/11/19 21:45 84 16 205/115 97 10/11/19 20:29 98.5 F 85 16 206/112 98 Home Medications Medication Instructions Recorded Confirmed Last Taken Type No Reportable Medications [No 10/11/19 10/11/19 Unknown History Reported Medications] Current Medications Generic Name Dose Route Start Last Admin Trade Name Freq PRN Reason Stop Dose Admin Acetaminophen 650 mg 10/12/19 01:18 10/12/19 02:36 Tylenol 325 Mg PO 11/11/19 01:17 650 mg Q4H PRN PRN Administration PAIN AND/OR FEVER Amlodipine Besylate 10 mg 10/12/19 10:00 10/12/19 09:19 Norvasc 5 Mg PO 11/11/19 09:59 10 mg QAM SARA Administration Sodium Chloride 1,000 mls @ 50 mls/hr 10/11/19 20:45 10/11/19 21:02 Sodium Chloride 0.9% 1000 Ml IV 11/10/19 20:44 50 mls/hr .Q20H SARA Administration Metoprolol Succinate 50 mg 10/12/19 10:00 10/12/19 09:19 Toprol Xl 50 Mg PO 11/11/19 09:59 50 mg DAILY SARA Administration Morphine Sulfate 2 mg 10/12/19 01:18 Morphine Sulfate 2 Mg Inj IV 10/17/19 01:17 Q4H PRN PRN PAIN Ondansetron HCl 4 mg 10/12/19 01:18 Zofran 4 Mg/2 Ml Vial IV 11/11/19 01:17 Q6H PRN PRN NAUSEA/VOMITING Discontinued Medications Generic Name Dose Route Start Last Admin Trade Name Freq PRN Reason Stop Dose Admin Amlodipine Besylate 10 mg 10/11/19 20:55 10/11/19 21:02 Norvasc 5 Mg PO 10/11/19 20:56 10 mg STAT ONE Administration Amlodipine Besylate Confirm 10/11/19 21:00 Norvasc 5 Mg Administered 10/11/19 21:01 Dose 10 mg .ROUTE .STK-MED ONE Clonidine 0.1 mg 10/11/19 20:39 10/11/19 21:02 Catapres 0.1 Mg PO 10/11/19 20:40 0.1 mg STAT ONE Administration Clonidine Confirm 10/11/19 20:55 Catapres 0.1 Mg Administered 10/11/19 20:56 Dose 0.1 mg .ROUTE .STK-MED ONE Hydromorphone HCl 1 mg 10/11/19 20:55 10/11/19 21:03 Hydromorphone 1 Mg/Ml Ampule IV 10/11/19 20:56 1 mg STAT ONE Administration Hydromorphone HCl Confirm 10/11/19 21:00 Hydromorphone 1 Mg/Ml Ampule Administered 10/11/19 21:01 Dose 1 mg .ROUTE .STK-MED ONE Metoprolol Tartrate 5 mg 10/11/19 21:42 10/11/19 21:49 Lopressor 5 Mg/5 Ml Injection IV 10/11/19 21:43 5 mg STAT ONE Administration Metoprolol Tartrate Confirm 10/11/19 21:45 Lopressor 5 Mg/5 Ml Injection Administered 10/11/19 21:46 Dose 5 mg IV .STK-MED ONE Ondansetron HCl 4 mg 10/11/19 21:43 10/11/19 21:48 Zofran 4 Mg/2 Ml Vial IV 10/11/19 21:44 4 mg STAT ONE Administration Ondansetron HCl Confirm 10/11/19 21:45 Zofran 4 Mg/2 Ml Vial Administered 10/11/19 21:46 Dose 4 mg .ROUTE .STK-MED ONE Intake & Output (Last 24 hours) 10/09/19 10/10/19 10/11/19 10/12/19 11:59 11:59 11:59 11:59 Intake Total 100 Balance 100 Weight 109.5 kg Laboratory Results (Last 24 hours) 10/12/19 10/12/19 10/12/19 08:45 05:47 03:25 WBC RBC Hgb Hct MCV MCH MCHC RDW Plt Count MPV Gran % Eos # (Auto) Absolute Lymphs (auto) Absolute Monos (auto) Lymphocytes % Monocytes % Eosinophils % Basophils % Absolute Granulocytes Basophils # PT INR APTT Sodium 135 L Potassium 4.0 Chloride 104 Carbon Dioxide 26 Anion Gap 8.8 BUN 13 Creatinine 0.90 Estimated GFR > 60.0 Glucose 119 H Lactic Acid Calcium 8.5 Total Bilirubin AST ALT Alkaline Phosphatase Troponin I < 0.012 < 0.012 Serum Total Protein Albumin Amylase Lipase Urine Color Urine Appearance Urine pH Ur Specific Hailey Urine Protein Urine Ketones Urine Blood Urine Nitrite Urine Bilirubin Urine Urobilinogen Ur Leukocyte Esterase Urine WBC (Auto) Urine RBC (Auto) U Epithel Cells (Auto) Urine Bacteria (Auto) Urine Mucus (Auto) Urine Culture Reflexed Urine Glucose SARS-CoV-2 (PCR) 10/12/19 10/12/19 10/12/19 03:25 00:10 00:10 WBC 6.3 RBC 4.76 Hgb 14.9 Hct 42.9 MCV 90.1 MCH 31.3 MCHC 34.7 RDW 13.4 Plt Count 259 MPV 10.2 Gran % 51.4 Eos # (Auto) 0.25 Absolute Lymphs (auto) 2.21 Absolute Monos (auto) 0.57 Lymphocytes % 35.0 Monocytes % 9.0 Eosinophils % 4.0 Basophils % 0.6 Absolute Granulocytes 3.24 Basophils # 0.04 PT INR APTT Sodium Potassium Chloride Carbon Dioxide Anion Gap BUN Creatinine Estimated GFR Glucose Lactic Acid Calcium Total Bilirubin AST ALT Alkaline Phosphatase Troponin I < 0.012 < 0.012 Serum Total Protein Albumin Amylase Lipase Urine Color Urine Appearance Urine pH Ur Specific Hailey Urine Protein Urine Ketones Urine Blood Urine Nitrite Urine Bilirubin Urine Urobilinogen Ur Leukocyte Esterase Urine WBC (Auto) Urine RBC (Auto) U Epithel Cells (Auto) Urine Bacteria (Auto) Urine Mucus (Auto) Urine Culture Reflexed Urine Glucose SARS-CoV-2 (PCR) 10/11/19 10/11/1920 Unknown 23:50 21:05 WBC RBC Hgb Hct MCV MCH MCHC RDW Plt Count MPV Gran % Eos # (Auto) Absolute Lymphs (auto) Absolute Monos (auto) Lymphocytes % Monocytes % Eosinophils % Basophils % Absolute Granulocytes Basophils # PT INR APTT Sodium Potassium Chloride Carbon Dioxide Anion Gap BUN Creatinine Estimated GFR Glucose Lactic Acid 1.4 Calcium Total Bilirubin AST ALT Alkaline Phosphatase Troponin I Serum Total Protein Albumin Amylase Lipase Urine Color YELLOW Urine Appearance CLEAR Urine pH 7.0 Ur Specific Hailey 1.015 Urine Protein NEGATIVE Urine Ketones NEGATIVE Urine Blood NEGATIVE Urine Nitrite NEGATIVE Urine Bilirubin NEGATIVE Urine Urobilinogen NEGATIVE Ur Leukocyte Esterase NEGATIVE Urine WBC (Auto) NONE Urine RBC (Auto) NONE U Epithel Cells (Auto) NONE Urine Bacteria (Auto) NONE SEEN Urine Mucus (Auto) SLIGHT Urine Culture Reflexed NO Urine Glucose NEGATIVE SARS-CoV-2 (PCR) NEGATIVE 10/11/19 10/11/19 10/11/19 20:50 20:50 20:50 WBC RBC Hgb Hct MCV MCH MCHC RDW Plt Count MPV Gran % Eos # (Auto) Absolute Lymphs (auto) Absolute Monos (auto) Lymphocytes % Monocytes % Eosinophils % Basophils % Absolute Granulocytes Basophils # PT 11.8 INR 1.04 APTT 45.6 H Sodium 136 L Potassium 4.4 Chloride 106 Carbon Dioxide 22 Anion Gap 12.1 BUN 16 Creatinine 0.91 Estimated GFR > 60.0 Glucose 125 H Lactic Acid Calcium 9.0 Total Bilirubin 0.80 AST 30 ALT 25 Alkaline Phosphatase 65 Troponin I < 0.012 Serum Total Protein 7.9 Albumin 4.5 Amylase 64 Lipase 87 Urine Color Urine Appearance Urine pH Ur Specific Hailey Urine Protein Urine Ketones Urine Blood Urine Nitrite Urine Bilirubin Urine Urobilinogen Ur Leukocyte Esterase Urine WBC (Auto) Urine RBC (Auto) U Epithel Cells (Auto) Urine Bacteria (Auto) Urine Mucus (Auto) Urine Culture Reflexed Urine Glucose SARS-CoV-2 (PCR) 10/11/19 20:50 WBC 6.4 RBC 5.22 Hgb 16.6 Hct 46.8 MCV 89.7 MCH 31.8 MCHC 35.5 RDW 13.4 Plt Count 300 MPV 10.4 Gran % 58.9 Eos # (Auto) 0.19 Absolute Lymphs (auto) 1.73 Absolute Monos (auto) 0.64 Lymphocytes % 26.9 Monocytes % 10.0 Eosinophils % 3.0 Basophils % 1.2 Absolute Granulocytes 3.78 Basophils # 0.08 PT INR APTT Sodium Potassium Chloride Carbon Dioxide Anion Gap BUN Creatinine Estimated GFR Glucose Lactic Acid Calcium Total Bilirubin AST ALT Alkaline Phosphatase Troponin I Serum Total Protein Albumin Amylase Lipase Urine Color Urine Appearance Urine pH Ur Specific Hailey Urine Protein Urine Ketones Urine Blood Urine Nitrite Urine Bilirubin Urine Urobilinogen Ur Leukocyte Esterase Urine WBC (Auto) Urine RBC (Auto) U Epithel Cells (Auto) Urine Bacteria (Auto) Urine Mucus (Auto) Urine Culture Reflexed Urine Glucose SARS-CoV-2 (PCR) Orders (Last 24 hours) Category Date Time Status Code Status Order ROUTINE Care 10/12/19 01:19 Active EKG-ER Only STAT Care 10/11/19 20:39 Completed Fall Protocol ROUTINE Care 10/12/19 01:21 Completed IV Care Q6H Care 10/12/19 01:19 Active IV Insertion STAT Care 10/11/19 20:[address] in Observation ROUTINE Care 10/12/19 01:19 Active Telemetry q6h Care 10/12/19 01:18 Active Vital Signs Q4H Care 10/12/19 01:18 Active Low Sodium (1.5-2gram Sodium) Diet 10/12/19 Breakfast Active CHEST 1 VIEW (PORTABLE) Stat Exams 10/11/19 20:40 Completed CHEST WITH CONTRAST [CT] Stat Exams 10/11/19 22:53 Completed HEAD WITHOUT CONTRAST [CT] Stat Exams 10/11/19 20:56 Completed AMYLASE Stat Lab 10/11/19 20:50 Completed BMP AM.LAB Lab 10/12/19 03:25 Completed CBC W DIFF AM.LAB Lab 10/12/19 03:25 Completed CBC W DIFF Stat Lab 10/11/19 20:50 Completed CMP Stat Lab 10/11/19 20:50 Completed LIPASE Stat Lab 10/11/19 20:50 Completed Lactic Acid Stat Lab 10/11/19 21:05 Completed PROTIME WITH INR Stat Lab 10/11/19 20:50 Completed PTT Stat Lab 10/11/19 20:50 Completed TROPONIN Q3H Lab 10/11/19 20:50 Completed TROPONIN Q3H Lab 10/11/19 23:45 Completed TROPONIN Q3H Lab 10/12/19 00:10 Completed TROPONIN Q3H Lab 10/12/19 05:47 Completed TROPONIN Q3H Lab 10/12/19 08:45 Completed Acetaminophen 325 mg [Tylenol 325 mg] Med 10/12/19 01:18 Active 650 mg PO Q4H PRN PRN Amlodipine Besylate 5 mg [Norvasc 5 mg] Med 10/11/19 21:00 Discontinued 10 mg .ROUTE .STK-MED ONE Amlodipine Besylate 5 mg [Norvasc 5 mg] Med 10/12/19 10:00 Active 10 mg PO QAM Amlodipine Besylate 5 mg [Norvasc 5 mg] Med 10/11/19 20:55 Discontinued 10 mg PO STAT ONE Clonidine HCl 0.1 mg [Catapres 0.1 MG] Med 10/11/19 20:55 Discontinued 0.1 mg .ROUTE .STK-MED ONE Clonidine HCl 0.1 mg [Catapres 0.1 MG] Med 10/11/19 20:39 Discontinued 0.1 mg PO STAT ONE Hydromorphone 1 mg/1Ml Inj [Hydromorphone 1 mg/ml Med 10/11/19 21:00 Discontinued Ampule] 1 mg .ROUTE .STK-MED ONE Hydromorphone 1 mg/1Ml Inj [Hydromorphone 1 mg/ml Med 10/11/19 20:55 Discontinued Ampule] 1 mg IV STAT ONE Metoprolol Succinate 50 mg [Toprol Xl 50 MG] Med 10/12/19 10:00 Active 50 mg PO DAILY Metoprolol Tartrate 5 mg/5 ml* [Lopressor 5 mg/5 ml Med 10/11/19 21:45 Discontinued Injection] 5 mg IV .STK-MED ONE Metoprolol Tartrate 5 mg/5 ml* [Lopressor 5 mg/5 ml Med 10/11/19 21:42 Discontinued Injection] 5 mg IV STAT ONE Morphine Sulfate 2 mg Inj Med 10/12/19 01:18 Active 2 mg IV Q4H PRN PRN NaCl 0.9% 1000 ml [Sodium Chloride 0.9% 1000 ML] 1,000 Med 10/11/19 20:45 Active ml IV 50 mls/hr Ondansetron HCl 4 mg/2 ml [Zofran 4 MG/2 ML VIAL] Med 10/11/19 21:45 Discontinued 4 mg .ROUTE .STK-MED ONE Ondansetron HCl 4 mg/2 ml [Zofran 4 MG/2 ML VIAL] Med 10/12/19 01:18 Active 4 mg IV Q6H PRN PRN Ondansetron HCl 4 mg/2 ml [Zofran 4 MG/2 ML VIAL] Med 10/11/19 21:43 Discontinued 4 mg IV STAT ONE Transfer Order Routine Transfer 10/12/19 Completed - Vitals & Intake/Output Vital Signs: Vital Signs Temperature 97.7 F 10/12/19 07:31 Pulse Rate 51 L 10/12/19 07:31 Respiratory Rate 17 10/12/19 07:31 Blood Pressure 134/69 10/12/19 07:31 O2 Sat by Pulse Oximetry 95 10/12/19 07:31 Intake & Output: Intake & Output 10/09/19 10/10/19 10/11/19 10/12/19 11:59 11:59 11:59 11:59 Intake Total 100 Balance 100 Weight 109.5 kg - Lab Result Diagrams: 10/12/19 03:25 10/12/19 03:25 Lab Results-Last 24 Hrs: Lab Results-Last 24 Hours 10/11/19 10/11/19 10/11/19 Range/Units 20:50 20:50 20:50 WBC 6.4 (4.0-10.5) K/mm3 RBC 5.22 (4.1-5.6) M/mm3 Hgb 16.6 (12.5-18.0) gm/dl Hct 46.8 (42-50) % MCV 89.7 (78-100) fl MCH 31.8 (26-32) pg MCHC 35.5 (32-36) g/dl RDW 13.4 (11.5-14.0) % Plt Count 300 (150-450) K/mm3 MPV 10.4 (7.5-11.0) fl Gran % 58.9 (36.0-66.0) % Eos # (Auto) 0.19 (0-0.5) Absolute Lymphs (auto) 1.73 (1.0-4.6) Absolute Monos (auto) 0.64 (0.0-1.3) Lymphocytes % 26.9 (24.0-44.0) % Monocytes % 10.0 (0.0-12.0) % Eosinophils % 3.0 (0.00-5.0) % Basophils % 1.2 (0.0-0.4) % Absolute Granulocytes 3.78 (1.4-6.9) Basophils # 0.08 (0-0.4) PT 11.8 (8.83-12.87) SECONDS INR 1.04 (0.8-3.0) APTT 45.6 H (24.1-36.1) SECONDS Sodium 136 L (137-145) mmol/L Potassium 4.4 (3.5-5.1) mmol/L Chloride 106 (98-107) mmol/L Carbon Dioxide 22 (22-30) mmol/L Anion Gap 12.1 (5-15) MEQ/L BUN 16 (9-20) mg/dL Creatinine 0.91 (0.66-1.25) mg/dL Estimated GFR > 60.0 ML/MIN Glucose 125 H (74-106) mg/dL Lactic Acid (0.4-2.0) Calcium 9.0 (8.4-10.2) mg/dL Total Bilirubin 0.80 (0.2-1.3) mg/dL AST 30 (17-59) U/L ALT 25 (0-50) U/L Alkaline Phosphatase 65 (38-126) U/L Troponin I (0.000-0.034) ng/mL Serum Total Protein 7.9 (6.3-8.2) g/dL Albumin 4.5 (3.5-5.0) g/dL Amylase 64 (30-110) U/L Lipase 87 (23-300) U/L Urine Color (YELLOW) Urine Appearance (CLEAR) Urine pH (5-6) Ur Specific Hailey (1.005-1.025) Urine Protein (Negative) Urine Ketones (NEGATIVE) Urine Blood (0-5) Quentin/ul Urine Nitrite (NEGATIVE) Urine Bilirubin (NEGATIVE) Urine Urobilinogen (0-1) mg/dL Ur Leukocyte Esterase (NEGATIVE) Urine WBC (Auto) (0-5) /HPF Urine RBC (Auto) (0-2) /HPF U Epithel Cells (Auto) (FEW) /HPF Urine Bacteria (Auto) (NEGATIVE) /HPF Urine Mucus (Auto) (NEGATIVE) /HPF Urine Culture Reflexed (NO) Urine Glucose (NEGATIVE) mg/dL SARS-CoV-2 (PCR) (NEGATIVE) 10/11/19 10/11/19 10/11/19 Range/Units 20:50 21:05 23:50 WBC (4.0-10.5) K/mm3 RBC (4.1-5.6) M/mm3 Hgb (12.5-18.0) gm/dl Hct (42-50) % MCV (78-100) fl MCH (26-32) pg MCHC (32-36) g/dl RDW (11.5-14.0) % Plt Count (150-450) K/mm3 MPV (7.5-11.0) fl Gran % (36.0-66.0) % Eos # (Auto) (0-0.5) Absolute Lymphs (auto) (1.0-4.6) Absolute Monos (auto) (0.0-1.3) Lymphocytes % (24.0-44.0) % Monocytes % (0.0-12.0) % Eosinophils % (0.00-5.0) % Basophils % (0.0-0.4) % Absolute Granulocytes (1.4-6.9) Basophils # (0-0.4) PT (8.83-12.87) SECONDS INR (0.8-3.0) APTT (24.1-36.1) SECONDS Sodium (137-145) mmol/L Potassium (3.5-5.1) mmol/L Chloride (98-107) mmol/L Carbon Dioxide (22-30) mmol/L Anion Gap (5-15) MEQ/L BUN (9-20) mg/dL Creatinine (0.66-1.25) mg/dL Estimated GFR ML/MIN Glucose (74-106) mg/dL Lactic Acid 1.4 (0.4-2.0) Calcium (8.4-10.2) mg/dL Total Bilirubin (0.2-1.3) mg/dL AST (17-59) U/L ALT (0-50) U/L Alkaline Phosphatase (38-126) U/L Troponin I < 0.012 (0.000-0.034) ng/mL Serum Total Protein (6.3-8.2) g/dL Albumin (3.5-5.0) g/dL Amylase (30-110) U/L Lipase (23-300) U/L Urine Color (YELLOW) Urine Appearance (CLEAR) Urine pH (5-6) Ur Specific Hailey (1.005-1.025) Urine Protein (Negative) Urine Ketones (NEGATIVE) Urine Blood (0-5) Quentin/ul Urine Nitrite (NEGATIVE) Urine Bilirubin (NEGATIVE) Urine Urobilinogen (0-1) mg/dL Ur Leukocyte Esterase (NEGATIVE) Urine WBC (Auto) (0-5) /HPF Urine RBC (Auto) (0-2) /HPF U Epithel Cells (Auto) (FEW) /HPF Urine Bacteria (Auto) (NEGATIVE) /HPF Urine Mucus (Auto) (NEGATIVE) /HPF Urine Culture Reflexed (NO) Urine Glucose (NEGATIVE) mg/dL SARS-CoV-2 (PCR) NEGATIVE (NEGATIVE) 10/11/19 10/12/19 10/12/19 Range/Units Unknown 00:10 00:10 WBC (4.0-10.5) K/mm3 RBC (4.1-5.6) M/mm3 Hgb (12.5-18.0) gm/dl Hct (42-50) % MCV (78-100) fl MCH (26-32) pg MCHC (32-36) g/dl RDW (11.5-14.0) % Plt Count (150-450) K/mm3 MPV (7.5-11.0) fl Gran % (36.0-66.0) % Eos # (Auto) (0-0.5) Absolute Lymphs (auto) (1.0-4.6) Absolute Monos (auto) (0.0-1.3) Lymphocytes % (24.0-44.0) % Monocytes % (0.0-12.0) % Eosinophils % (0.00-5.0) % Basophils % (0.0-0.4) % Absolute Granulocytes (1.4-6.9) Basophils # (0-0.4) PT (8.83-12.87) SECONDS INR (0.8-3.0) APTT (24.1-36.1) SECONDS Sodium (137-145) mmol/L Potassium (3.5-5.1) mmol/L Chloride (98-107) mmol/L Carbon Dioxide (22-30) mmol/L Anion Gap (5-15) MEQ/L BUN (9-20) mg/dL Creatinine (0.66-1.25) mg/dL Estimated GFR ML/MIN Glucose (74-106) mg/dL Lactic Acid (0.4-2.0) Calcium (8.4-10.2) mg/dL Total Bilirubin (0.2-1.3) mg/dL AST (17-59) U/L ALT (0-50) U/L Alkaline Phosphatase (38-126) U/L Troponin I < 0.012 < 0.012 (0.000-0.034) ng/mL Serum Total Protein (6.3-8.2) g/dL Albumin (3.5-5.0) g/dL Amylase (30-110) U/L Lipase (23-300) U/L Urine Color YELLOW (YELLOW) Urine Appearance CLEAR (CLEAR) Urine pH 7.0 (5-6) Ur Specific Hailey 1.015 (1.005-1.025) Urine Protein NEGATIVE (Negative) Urine Ketones NEGATIVE (NEGATIVE) Urine Blood NEGATIVE (0-5) Quentin/ul Urine Nitrite NEGATIVE (NEGATIVE) Urine Bilirubin NEGATIVE (NEGATIVE) Urine Urobilinogen NEGATIVE (0-1) mg/dL Ur Leukocyte Esterase NEGATIVE (NEGATIVE) Urine WBC (Auto) NONE (0-5) /HPF Urine RBC (Auto) NONE (0-2) /HPF U Epithel Cells (Auto) NONE (FEW) /HPF Urine Bacteria (Auto) NONE SEEN (NEGATIVE) /HPF Urine Mucus (Auto) SLIGHT (NEGATIVE) /HPF Urine Culture Reflexed NO (NO) Urine Glucose NEGATIVE (NEGATIVE) mg/dL SARS-CoV-2 (PCR) (NEGATIVE) 10/12/19 10/12/19 10/12/19 Range/Units 03:25 03:25 05:47 WBC 6.3 (4.0-10.5) K/mm3 RBC 4.76 (4.1-5.6) M/mm3 Hgb 14.9 (12.5-18.0) gm/dl Hct 42.9 (42-50) % MCV 90.1 (78-100) fl MCH 31.3 (26-32) pg MCHC 34.7 (32-36) g/dl RDW 13.4 (11.5-14.0) % Plt Count 259 (150-450) K/mm3 MPV 10.2 (7.5-11.0) fl Gran % 51.4 (36.0-66.0) % Eos # (Auto) 0.25 (0-0.5) Absolute Lymphs (auto) 2.21 (1.0-4.6) Absolute Monos (auto) 0.57 (0.0-1.3) Lymphocytes % 35.0 (24.0-44.0) % Monocytes % 9.0 (0.0-12.0) % Eosinophils % 4.0 (0.00-5.0) % Basophils % 0.6 (0.0-0.4) % Absolute Granulocytes 3.24 (1.4-6.9) Basophils # 0.04 (0-0.4) PT (8.83-12.87) SECONDS INR (0.8-3.0) APTT (24.1-36.1) SECONDS Sodium 135 L (137-145) mmol/L Potassium 4.0 (3.5-5.1) mmol/L Chloride 104 (98-107) mmol/L Carbon Dioxide 26 (22-30) mmol/L Anion Gap 8.8 (5-15) MEQ/L BUN 13 (9-20) mg/dL Creatinine 0.90 (0.66-1.25) mg/dL Estimated GFR > 60.0 ML/MIN Glucose 119 H (74-106) mg/dL Lactic Acid (0.4-2.0) Calcium 8.5 (8.4-10.2) mg/dL Total Bilirubin (0.2-1.3) mg/dL AST (17-59) U/L ALT (0-50) U/L Alkaline Phosphatase (38-126) U/L Troponin I < 0.012 (0.000-0.034) ng/mL Serum Total Protein (6.3-8.2) g/dL Albumin (3.5-5.0) g/dL Amylase (30-110) U/L Lipase (23-300) U/L Urine Color (YELLOW) Urine Appearance (CLEAR) Urine pH (5-6) Ur Specific Hailey (1.005-1.025) Urine Protein (Negative) Urine Ketones (NEGATIVE) Urine Blood (0-5) Quentin/ul Urine Nitrite (NEGATIVE) Urine Bilirubin (NEGATIVE) Urine Urobilinogen (0-1) mg/dL Ur Leukocyte Esterase (NEGATIVE) Urine WBC (Auto) (0-5) /HPF Urine RBC (Auto) (0-2) /HPF U Epithel Cells (Auto) (FEW) /HPF Urine Bacteria (Auto) (NEGATIVE) /HPF Urine Mucus (Auto) (NEGATIVE) /HPF Urine Culture Reflexed (NO) Urine Glucose (NEGATIVE) mg/dL SARS-CoV-2 (PCR) (NEGATIVE) 10/12/19 Range/Units 08:45 WBC (4.0-10.5) K/mm3 RBC (4.1-5.6) M/mm3 Hgb (12.5-18.0) gm/dl Hct (42-50) % MCV (78-100) fl MCH (26-32) pg MCHC (32-36) g/dl RDW (11.5-14.0) % Plt Count (150-450) K/mm3 MPV (7.5-11.0) fl Gran % (36.0-66.0) % Eos # (Auto) (0-0.5) Absolute Lymphs (auto) (1.0-4.6) Absolute Monos (auto) (0.0-1.3) Lymphocytes % (24.0-44.0) % Monocytes % (0.0-12.0) % Eosinophils % (0.00-5.0) % Basophils % (0.0-0.4) % Absolute Granulocytes (1.4-6.9) Basophils # (0-0.4) PT (8.83-12.87) SECONDS INR (0.8-3.0) APTT (24.1-36.1) SECONDS Sodium (137-145) mmol/L Potassium (3.5-5.1) mmol/L Chloride (98-107) mmol/L Carbon Dioxide (22-30) mmol/L Anion Gap (5-15) MEQ/L BUN (9-20) mg/dL Creatinine (0.66-1.25) mg/dL Estimated GFR ML/MIN Glucose (74-106) mg/dL Lactic Acid (0.4-2.0) Calcium (8.4-10.2) mg/dL Total Bilirubin (0.2-1.3) mg/dL AST (17-59) U/L ALT (0-50) U/L Alkaline Phosphatase (38-126) U/L Troponin I < 0.012 (0.000-0.034) ng/mL Serum Total Protein (6.3-8.2) g/dL Albumin (3.5-5.0) g/dL Amylase (30-110) U/L Lipase (23-300) U/L Urine Color (YELLOW) Urine Appearance (CLEAR) Urine pH (5-6) Ur Specific Hailey (1.005-1.025) Urine Protein (Negative) Urine Ketones (NEGATIVE) Urine Blood (0-5) Quentin/ul Urine Nitrite (NEGATIVE) Urine Bilirubin (NEGATIVE) Urine Urobilinogen (0-1) mg/dL Ur Leukocyte Esterase (NEGATIVE) Urine WBC (Auto) (0-5) /HPF Urine RBC (Auto) (0-2) /HPF U Epithel Cells (Auto) (FEW) /HPF Urine Bacteria (Auto) (NEGATIVE) /HPF Urine Mucus (Auto) (NEGATIVE) /HPF Urine Culture Reflexed (NO) Urine Glucose (NEGATIVE) mg/dL SARS-CoV-2 (PCR) (NEGATIVE) - Radiology Exams Ordered Rad Exams-Entire Visit: Radiology Procedures Category Date Time Status CHEST 1 VIEW (PORTABLE) Stat Exams 10/11/19 20:40 Completed CHEST WITH CONTRAST [CT] Stat Exams 10/11/19 22:53 Completed HEAD WITHOUT CONTRAST [CT] Stat Exams 10/11/19 20:56 Completed - Discharge Disposition: Home, Self-Care Condition: Stable Prescriptions: New Amlodipine Besylate 5 mg [Norvasc 5 mg] 10 mg PO QAM 30 Days #30 tablet Metoprolol Succinate 50 mg [Toprol Xl 50 MG] 50 mg PO DAILY #30 tablet.sa Instructions: Malignant Hypertension, High Blood Pressure (DC) Follow up with: TOMMY MELO MD [NON-STAFF PHY W/O PRIVILEGES] - 1 Week
[2019-10-12 12:01] VITALS: BP 133/74; PULSE 65; O2SAT 96
== END 2019-10-12 12:20 | disposition home or self-care (01) ==
LOC: ED 20:22 → MED SURG 10-12 01:48
PROVIDERS: ADMIT General Practice; ATTEND General Practice
DX: R07.9 Chest pain, unspecified (principal); I16.1 Hypertensive emergency; I11.0 Hypertensive heart disease with heart failure; I50.9 Heart failure, unspecified; R51 Headache
CPT/HCPCS: 36000; 36415; 70450; 71045; 71260; 80048; 80053; 81001; 82150; 83605; 83690; 84484; 85025; 85610; 85730; 93005; 93268; 96374; 96375; 99285; 99291; G0378; U0003; J1170; J2405; A9270-GY